=== PATIENT | male | born 1970 | race Caucasian/White ===

== ENCOUNTER 2018-04-10 13:43 | Inpatient (IN) | payer OTHER ==
[~2018-04-10] VITALS: Ht 182.9 cm; Wt 123.2 kg
[2018-04-10] MEDS ORDERED: NITROGLYCERIN SINGLE TAB 0.4 MG SL ONE (14:23)
[2018-04-10] MEDS ORDERED: ASPIRIN 81 MG TABLET CHEW ONE (14:24)
[2018-04-10] MEDS ORDERED: ASPIRIN 81 MG TABLET CHEW PO ONE (14:30)
[2018-04-10] MEDS ORDERED: NITROGLYCERIN SINGLE TAB 0.4 MG SL PRN (14:30)
[2018-04-10 14:57] LABS: BASOPHILS # (AUTO) 0.04 x10^3/uL (0-0.1); BASOPHILS % (AUTO) 1 % (0-1); EOSINOPHILS # (AUTO) 0.08 x10^3/uL (0-0.4); EOSINOPHILS % (AUTO) 1 % (1-7); LYMPHOCYTES # (AUTO) 2.47 x10^3/uL (1-3.4); LYMPHOCYTES % (AUTO) 30 % (22-44); MD NO; MEAN CORPUSCULAR HEMOGLOBIN 29.6 pg (27.5-34.5); MEAN CORPUSCULAR HGB CONC 33.9 g/dL (33.2-36.2); MEAN CORPUSCULAR VOLUME 87.2 fL (81-97); MEAN PLATELET VOLUME 8.8 fL (7.4-10.4); MONOCYTES # (AUTO) 0.78 x10^3/uL (0.2-0.8); MONOCYTES % (AUTO) 9 % (2-9); NEUTROPHILS # (AUTO) 5.01 x10^3/uL (1.8-6.8); NEUTROPHILS % (AUTO) 60 % (42-75); PLATELET COUNT 192 x10^3/uL (130-400); RED BLOOD COUNT 5.03 x10^6/uL (4.38-5.82); RED CELL DISTRIBUTION WIDTH 13.3 % (9.4-14.8)
[2018-04-10] MEDS ORDERED: FAMO-79 PO (15:02)
[2018-04-10] MEDS ORDERED: ASPI-496 PO (15:02)
[2018-04-10 15:14] LABS: ALBUMIN 3.8 g/dL (3.4-5.0); ANION GAP 7 mmol/L (5-15); CHLORIDE 107 mmol/L (98-107); CREATININE 1.25 mg/dL (0.7-1.3)
[2018-04-10 15:18] LABS: TROPONIN I < 0.015 ng/mL (0.000-0.045)
[2018-04-10] MEDS ORDERED: MORPHINE SULFATE 4 MG/ML, 1ML IV PRN (17:00)
[2018-04-10] MEDS ORDERED: ACETAMINOPHEN 325 MG TABLET PO PRN (17:00)
[2018-04-10] MEDS ORDERED: hydrALAzine 20 MG/ML, 1ML IVPush PRN (17:00)
[2018-04-10] MEDS: HEPARIN 5,000 UNITS/ML, 1ML SQ SCH (17:00)
[2018-04-10] MEDS ORDERED: NITROGLYCERIN 0.4 MG/SPRAY SL PRN (17:00)
[2018-04-10 17:18] LABS: FREE T4 (FREE THYROXINE) 1.04 ng/dL (0.76-1.46); TROPONIN I < 0.015 ng/mL (0.000-0.045)
[2018-04-10 17:34] LABS: HEMOGLOBIN A1C 5.9 % (4.2-6.3)
[2018-04-10 17:59] VITALS: BP 169/82
[2018-04-10 18:38] VITALS: BP 150/76
[2018-04-10] MEDS: SODIUM CHLORIDE FLUSH 10ML SYR IVF SCH (20:47)
[2018-04-10] MEDS: FAMOTIDINE 20 MG TABLET PO SCH (20:47)
[2018-04-10] MEDS ORDERED: ATORVASTATIN 40 MG TABLET PO SCH (21:00)
[2018-04-10 23:09] LABS: TROPONIN I < 0.015 ng/mL (0.000-0.045)
[2018-04-11] MEDS: HEPARIN 5,000 UNITS/ML, 1ML SQ SCH ×2 (01:38→11:17)
[2018-04-11 03:00] VITALS: BP 124/76
[2018-04-11 03:23] LABS: AMPHETAMINE SCREEN, URINE Negative (Negative); BARBITURATE SCREEN, URINE Negative (Negative); BENZODIAZEPINE SCREEN, URINE Negative (Negative); CANNABINOID SCREEN, URINE Negative (Negative); COCAINE SCREEN, URINE Negative (Negative); METHADONE SCREEN, URINE Negative (Negative); OPIATE SCREEN, URINE Negative (Negative)
[2018-04-11 04:40] VITALS: BP 124/72
[2018-04-11 05:19] LABS: ANION GAP 6 mmol/L (5-15); BASOPHILS # (AUTO) 0.06 x10^3/uL (0-0.1); BASOPHILS % (AUTO) 1 % (0-1); CALCIUM 8.8 mg/dL (8.5-10.1); CHLORIDE 107 mmol/L (98-107); EOSINOPHILS # (AUTO) 0.14 x10^3/uL (0-0.4); EOSINOPHILS % (AUTO) 2 % (1-7); LYMPHOCYTES # (AUTO) 3.05 x10^3/uL (1-3.4); LYMPHOCYTES % (AUTO) 41 % (22-44); MD NO; MEAN CORPUSCULAR HEMOGLOBIN 29.5 pg (27.5-34.5); MEAN CORPUSCULAR HGB CONC 33.5 g/dL (33.2-36.2); MONOCYTES # (AUTO) 0.92 x10^3/uL (0.2-0.8); MONOCYTES % (AUTO) 12 % (2-9); NEUTROPHILS # (AUTO) 3.27 x10^3/uL (1.8-6.8); NEUTROPHILS % (AUTO) 44 % (42-75); PLATELET COUNT 171 x10^3/uL (130-400); RED CELL DISTRIBUTION WIDTH 13.8 % (9.4-14.8)
[2018-04-11 05:33] LABS: CHOL/HDL RATIO 3.7; CHOLESTEROL, TOTAL 155 mg/dL (140-239); CREATININE 1.13 mg/dL (0.7-1.3); HDL CHOL % 27 % (26-37); HDL CHOLESTEROL (DIRECT) 42 mg/dL (40-60); LDL CHOLESTEROL,CALCULATED 93 mg/dL (54-169); LDL/HDL RATIO 2.2 (0.5-3.0); TRIGLYCERIDES 99 mg/dL (50-200); VLDL CHOLESTEROL 20 mg/dL (0-25)
[2018-04-11] MEDS ORDERED: ASPIRIN 325 MG TABLET EC PO SCH ×2 (06:00)
[2018-04-11 06:27] VITALS: BP 134/84
[2018-04-11] MEDS: FAMOTIDINE 20 MG TABLET PO SCH (11:17)
[2018-04-11] MEDS: SODIUM CHLORIDE FLUSH 10ML SYR IVF SCH (11:18)
[2018-04-11 12:17] VITALS: BP 163/90
[2018-04-11] MEDS ORDERED: ATOR40TA78 PO (13:14)
== END 2018-04-11 14:00 | disposition home or self-care (01) | DRG 313 ==
LOC: ED 16:00 → EDIP 16:01 → ED 16:13 → 5SO 17:30 → DCLOUNGE 04-11 13:48
PROVIDERS: ADMIT Hospitalist; ATTEND Hospitalist
DX: R07.9 Chest pain, unspecified (principal); I25.10 Atherosclerotic heart disease of native coronary artery without angina pectoris; E78.5 Hyperlipidemia, unspecified; I25.2 Old myocardial infarction; K21.9 Gastro-esophageal reflux disease without esophagitis; K44.9 Diaphragmatic hernia without obstruction or gangrene; Z82.49 Family history of ischemic heart disease and other diseases of the circulatory system; Z87.891 Personal history of nicotine dependence; Z91.19 Patient's noncompliance with other medical treatment and regimen; R00.1 Bradycardia, unspecified
CPT/HCPCS: 36415; 71045; 78452; 80048; 80061; 80307; 82040; 83036; 83735; 83880; 84100; 84439; 84443; 84484; 85025; 85379; 93005; 93017; 99285; J1644; A9502; C9898